=== PATIENT | female | born 2000 | race Caucasian/White ===

== ENCOUNTER 2022-03-01 18:41 | Emergency (ER) | payer OTHER, SELFPAY ==
[2022-03-01 18:51] VITALS: BP 112/78; PULSE 109; RESP 18; TEMP 38; O2SAT 98; BMI 24.2
--- NOTE | 2022-03-01 18:51 | ED.ABDPAIN ---
HPI - Abdominal Pain General Chief Complaint: Abdominal Pain Stated Complaint: covid pos w/abdominal pain Time Seen by Provider: 03/01/22 18:50 Source: patient and family Mode of arrival: ambulatory Limitations: no limitations History of Present Illness HPI narrative: Delia is a 21yo female who identifies as male and prefers to be called Kavon. He presents to the ED for evaluation and treatment of abdominal pain. Patient reports that the pain started approximately 16 30 today. Kavon reports the abdominal pain is diffuse not well localized. Patient describes the pain as crampy/achy in nature. The patient reports the pain has been persistent for 2.5hrs. The patient also reports history of bloating and gas, without nausea, vomiting, diarrhea, or constipation. Last BM was earlier today and normal for patient. The patient takes hormonal supplements and has not had a period in quite some time. The patient reports not taking medication for abdominal pain, nausea, or vomiting. The patient reports not taking OTC medication. The patient is able to tolerate PO intake. The patient reports eating has no affect on symptoms. The patient states that he has had no known sick contacts, no recent changes in diet, no travel. The patient is COVID positive on day 3 of illness. Related Data Patient : No Home Medications Medication Instructions Recorded Confirmed bupropion HCl 300 mg 24 hr tablet, 300 mg PO DAILY 03/01/22 03/01/22 extended release testosterone 20.25 mg/1.25 gram 40.5 mg topical DAILY 03/01/22 03/01/22 (1.62 %) transdermal gel pump (AndroGel) venlafaxine 75 mg capsule,extended 75 mg PO DAILY 03/01/22 03/01/22 release 24 hr Allergies Allergy/AdvReac Type Severity Reaction Status Date / Time cefprozil Allergy Verified 03/01/22 18:58 Review of Systems Const Denies: fever, chills, fatigue, malaise or night sweats ENMT Denies: throat pain or difficulty swallowing Cardio Denies: chest pain or shortness of breath with exertion Resp Denies: shortness of breath or cough GI Reports: abdominal pain; Denies: nausea, vomiting, heartburn, diarrhea, constipation, bloating, belching, excessive passing of gas, difficulty swallowing, feeling full early, change in bowel habits or blood in stool Denies: painful urination, urinary frequency, urinary urgency or blood in urine Neuro Denies: headache Endo Denies: fatigue PFSH PFS Social History Smoking Status: Never smoker Second hand tobacco smoke exposure: No How often do you have a drink containing alcohol: never AUDIT-C Alcohol total score: 0 Non-prescribed substance use: denies use Exam Const: Vital Signs, click to edit/add: Vital Signs - 24 hr 03/01/22 18:51 03/01/22 21:08 Temperature 100.4 F H 99.3 F Pulse Rate [Right Pulse Oximeter] 109 H Respiratory Rate 18 Blood Pressure [Ri ght Upper Arm] 112/78 Pulse Oximetry 98 Oxygen Delivery Me thod Room Air Documenting provider has reviewed patient's vital signs: yes Common normals: no apparent distress, oriented x3, no limitations, healthy appearing, alert and well nourished General appearance: cooperative, comfortable and well developed; not in distress Orientation/consciousness: Yes awake, Yes oriented to person, Yes oriented to place and Yes oriented to time HENMT: Common normals: normocephalic and head/scalp atraumatic Head and scalp: normocephalic and atraumatic Face and sinus: normal facial exam (limited by masking) Eye: Common normals: EOMs intact bilaterally General eye: normal appearance of both eyes Resp: Common normals: normal respiratory effort, no retractions, no use of accessory muscles and clear to auscultation bilaterally Effort & inspection: able to speak in complete sentences Auscultation: clear to auscultation bilaterally Cardio: Common normals: regular rate, regular rhythm, S1 normal heart sound, S2 normal heart sound, no gallops, no clicks and no murmurs Rate: regular rate Rhythm: regular rhythm Heart sounds: S1 normal and S2 normal GI: Common normals: Normal to inspection, nondistended, normoactive bowel sounds present and soft to palpation Palpation: soft and tender Details: suprapubic : Common normals: no CVA tenderness Bladder/kidney exam: no CVA tenderness Back & Pelvis: Common normals: no CVA tenderness Extremity: Common normals: normal to inspection, full ROM and no clubbing, cyanosis or edema Neuro: Common normals: oriented x3, CN's II-XII intact bilaterally, moves all extremities, no focal motor deficits and no sensory deficits noted Sensorium/orientation: awake, alert, oriented to person, oriented to place and oriented to time Gait (neuro): normal gait Sensory exam: double simultaneous stimulation for sensation normal Motor exam: no movement abnormalities noted Psych: Common normals: mental status grossly normal, thought process normal and speech normal Appearance: grossly normal Attitude: calm Speech: normal speech Thought process: normal thought process Thought content: normal thought content Attention/concentration: attention grossly intact Memory/cognition: memory grossly intact Insight: insight good Judgement: judgment good Skin: Common normals: no rashes or lesions noted General skin exam: no rashes or lesions noted Rashes: no rashes Course Course Hospital Course: Kavon presented to the ED with complaints of abdominal pain for approximately 2.5hrs with known COVID19 diagnosis. No h/o fever, chills, sweats. No nausea, vomiting, or diarrhea. He denies sexual activity. He was evaluated with labs, but imaging was deferred based off normal exam and lab findings. The patient was encouraged to provide a urine sample, and he was able to do so - but promptly contaminated the sample with toliet paper. The patient has been given Tylenol for elevated temperature and given recommendations on symptom control for COVID19 diagnosis. He was advised to return for new or worsening symptoms. Reevaluation(s) Reevaluation #1: Patient reports some improvement in symptoms. Patient's vital signs have remained stable. The results were discussed, and the patient verbalized understanding. Reasons for follow-up or return were discussed. Time: 20:33 Vital Signs Vital signs: Initial Vital Signs Temperature 100.4 F H 03/01/22 18:51 Temperature Source Temporal Artery Scan 03/01/22 18:51 Pulse Rate 109 H 03/01/22 18:51 Respiratory Rate 18 03/01/22 18:51 Blood Pressure 112/78 03/01/22 18:51 Blood Pressure Mean 89 03/01/22 18:51 Pulse Oximetry 98 03/01/22 18:51 Oxygen Delivery Method 03/01/22 18:51 Vital Signs Temperature 100.4 F H 03/01/22 18:51 Pulse Rate 109 H 03/01/22 18:51 Respiratory Rate 18 03/01/22 18:51 Blood Pressure 112/78 03/01/22 18:51 Pulse Oximetry 98 03/01/22 18:51 Oxygen Delivery Method 03/01/22 18:51 Temperature 99.3 F 03/01/22 21:08 Pulse Rate 109 H 03/01/22 18:51 Respiratory Rate 18 03/01/22 18:51 Blood Pressure 112/78 03/01/22 18:51 Pulse Oximetry 98 03/01/22 18:51 Oxygen Delivery Method 03/01/22 18:51 MDM - Abdominal Pain MDM Narrative Medical decision making narrative: During the evaluation of this patient consider multiple differential diagnosis considerations. The life-threatening differential diagnoses considered include: Appendicitis, aortic aneurysm, mesenteric ischemia, bowel perforation, volvulus, and bowel obstruction. Other differential diagnoses include but are not limited to: Inflammatory bowel disease, cholecystitis, pancreatitis, hepatitis, gastritis, GERD, diverticulitis, peptic ulcer disease, pyelonephritis/UTI, renal colic/stone, diseases of the genitourinary system and reproductive system, as well as the other etiologies. Medical Records Attestation: I reviewed the patient's medical records. Lab Data Attestation: I reviewed the patient's lab results. Labs: Lab Results 03/01/22 03/01/22 03/01/22 Range/Units 19:35 19:35 19:35 WBC 10.14 (4.50-11.00) K/uL RBC 4.82 (4.00-5.20) m/uL Hgb 14.7 (12.0-16.0) gm/dL Hct 43.2 (33.0-51.0) % MCV 90 (80-100) fL MCH 31 (26-34) pg MCHC 34 (32-36) gm/dL RDW Coeff of Kelly 11.8 (11.5-15.5) % Plt Count 279 (140-440) K/uL Neut % (Auto) 80.4 H (42.0-72.0) % Lymph % (Auto) 12.6 L (20-44) % [place] % (Auto) 6.8 (0.0-11.0) % Eos % (Auto) 0.1 (0.0-7.0) % Baso % (Auto) 0.1 (0.0-3.0) % Neut # (Auto) 8.20 H (1.7-7.0) K/uL Lymph # (Auto) 1.30 (0.90-2.90) K/uL [place] # (Auto) 0.70 (0.00-0.90) K/UL Eos # (Auto) 0.01 (0.00-0.50) K/uL Baso # (Auto) 0.01 (0.00-0.30) K/uL Abs Immat Gran (auto) 0.00 (0.00-0.30) K/uL Sodium 139 (135-149) mmol/L Potassium 3.5 L (3.6-5.1) mmol/L Chloride 99 (96-114) mmol/L Carbon Dioxide 32 (20-32) mmol/L BUN 8 (5-24) mg/dL Creatinine 0.8 (0.5-1.5) mg/dL Estimated Creat Clear 96.39 Estimated GFR 108 ml/min Glucose 92 (60-115) mg/dL Lactate 0.8 (0.5-1.9) mmol/L Calcium 9.0 (8.4-10.6) mg/dL Total Bilirubin 0.4 (0.1-1.5) mg/dL AST 32 (12-35) U/L ALT 16 (4-35) U/L Alkaline Phosphatase 71 (40-150) U/L Total Protein 7.9 (6.0-8.3) g/dL Albumin 4.3 (3.3-5.0) g/dL Discharge Plan Discharge Clinical Impression: COVID-19 Abdominal pain Qualifiers: Abdominal location: lower abdomen, unspecified Qualified Code(s): R10.30 - Lower abdominal pain, unspecified Patient Disposition: Home, Self-Care Condition: Stable Instructions: Acute Abdominal Pain (ED) Additional Instructions: Thank you for choosing [facility] for your care today. Drink plenty of water and consider using electrolyte replacement like Gatorade or substitute. Add probiotic of choice - Culturelle, ComVibe, or Kefir - or substitute. Eat a bland diet and advance as tolerated. Diet should include bananas, rice, applesauce, and toast (BRAT diet) and other bland foods. Slowly advance diet as tolerated. Consider possible dietary restrictions regarding lactose and/or gluten for persistent symptoms. If your symptoms worsen or persist, consider further evaluation and treatment including labs and imaging. I recommend calling primary care for follow-up in the next 3-5 days for reevaluation of symptoms. If new or worsening symptoms develop or you have any concerns in the meantime, please call your primary care clinic or return to the ER for re-evaluation. Activity Level: Activity as Tolerated Discharge Diet: Regular and Heart Healthy (2 gm sodium, low fat) Diet Detail: [place], advance as tolerated. Prescriptions: No Action testosterone [AndroGel] 20.25 mg/1.25 gram (1.62 %) gel in metered-dose pump 40.5 mg topical DAILY Rx Instructions: apply 1 pump amount over max area of EACH upper arm and shoulder venlafaxine 75 mg capsule,extended release 24hr 75 mg PO DAILY bupropion HCl 300 mg tablet extended release 24 hr 300 mg PO DAILY Follow Up/Referrals: Provider,Not a Local [Primary Care Provider] - Stand Alone Forms: Artify It Info Instructions
[2022-03-01 19:41] LABS: Lactate* 0.8 mmol/L (0.5-1.9)
[2022-03-01 19:45] LABS: Basophils Absolute Auto 0.01 K/uL (0.00-0.30); Basophils Percent Auto 0.1 % (0.0-3.0); Eosinophils Absolute Auto 0.01 K/uL (0.00-0.50); Eosinophils Percent Auto 0.1 % (0.0-7.0); Hematocrit 43.2 % (33.0-51.0); Hemoglobin* 14.7 gm/dL (12.0-16.0); Lymphocytes Percent Auto 12.6 % (20-44); Mean Corpuscular HGB Conc 34 gm/dL (32-36); Mean Corpuscular Hemoglobin 31 pg (26-34); Mean Corpuscular Volume 90 fL (80-100); Monocytes Percent Auto 6.8 % (0.0-11.0); Neutrophils Percent Auto 80.4 % (42.0-72.0); Platelet Count* 279 K/uL (140-440); RDW Coefficient of Variation % 11.8 % (11.5-15.5); Red Blood Count 4.82 m/uL (4.00-5.20); White Blood Count* 10.14 K/uL (4.50-11.00)
[2022-03-01 19:47] LABS: Slide Review Reflex No
[2022-03-01 19:54] LABS: Albumin* 4.3 g/dL (3.3-5.0)
[2022-03-01 19:55] LABS: Chloride* 99 mmol/L (96-114); Potassium* 3.5 mmol/L (3.6-5.1); Sodium* 139 mmol/L (135-149)
[2022-03-01 19:57] LABS: Aspartate Amino Transferase* 32 U/L (12-35); Bilirubin Total* 0.4 mg/dL (0.1-1.5); Carbon Dioxide* 32 mmol/L (20-32); Creatinine* 0.8 mg/dL (0.5-1.5); Est. Creatinine Clearance* 96.39; Estimated Glomerular Filt Rate 108 ml/min; Total Protein* 7.9 g/dL (6.0-8.3)
[2022-03-01 19:58] LABS: Alanine Aminotransferase* 16 U/L (4-35); Alkaline Phosphatase* 71 U/L (40-150); Blood Urea Nitrogen* 8 mg/dL (5-24); Glucose* 92 mg/dL (60-115)
[2022-03-01 21:08] VITALS: TEMP 37.4
[2022-03-01] MEDS: ACETAMINOPHEN 325 MG TABLET 650 MG PO (21:08)
[2022-03-01 21:55] LABS: Appearance Urine Clear (Clear); Bilirubin Urine Negative (Negative); Blood Urine Negative (Negative); Color Urine Yellow (Yellow); Glucose Urine Negative (Negative); Ketones Urine 1+ (Negative); Leukocyte Esterase Urine Negative (Negative); Nitrite Urine Negative (Negative); Protein Urine Negative (Negative); Specific Gravity Urine <= 1.005 (1.000-1.030); Urobilinogen Urine 0.2 (0.2-1.0)
[2022-03-01 22:15] VITALS: BP 105/77; PULSE 95; RESP 16; O2SAT 98
== END 2022-03-01 22:20 | disposition home or self-care (01) ==
PROVIDERS: Emergency Provider Family Medicine
DX: R10.30 Lower abdominal pain, unspecified (principal)
CPT/HCPCS: 36415; 80053; 81003; 83605; 85025; 99282; 99283; A9270